=== PATIENT | male | born 1960 | race Caucasian/White ===

== ENCOUNTER 2016-09-17 06:50 | Emergency (ER) | payer BC ==
[~2016-09-17] VITALS: Ht 170.2 cm; Wt 97.5 kg
[2016-09-17 07:16] VITALS: BP 134/90
[2016-09-17] MEDS ORDERED: LEVOPOW21 (07:22)
[2016-09-17] MEDS ORDERED: ATEN25TA PO (07:23)
[2016-09-17] MEDS ORDERED: LIPI10TA PO (07:23)
[2016-09-17] MEDS ORDERED: ALLO100T PO (07:24)
[2016-09-17 09:15] LABS: BASO % 0.6 % (0.0-1.0); EOS # 0.2 K/mm3 (0.0-0.50); EOS % 3.1 % (0.0-3.0); LARGE UNSTAINED CELL # 0.2 K/mm3 (0.0-0.4); LARGE UNSTAINED CELL % 3.2 % (0.0-4.0); LYMPH # 1.6 K/mm3 (1.5-4.5); LYMPH % 33.7 % (24.0-44.0); MEAN CORPUSCULAR HGB CONC 34.1 g/dl (32.0-36.5); MEAN CORPUSCULAR VOLUME 90.7 fl (80.0-96.0); MONO # 0.2 K/mm3 (0.0-0.8); NEUTROPHILS # 2.6 K/mm3 (1.8-7.7); NEUTROPHILS % 54.4 % (36.0-66.0); PLATELET COUNT, AUTOMATED 131 k/mm3 (150-450); RED CELL DISTRIBUTION WIDTH 12.3 % (11.5-14.5); WHITE BLOOD COUNT 4.8 K/mm3 (4.0-10.0)
[2016-09-17 09:32] LABS: ALBUMIN 3.8 GM/DL (3.2-5.2); ALBUMIN/GLOBULIN RATIO 1.27 (1.00-1.93); ALKALINE PHOSPHATASE 34 U/L (45-117); ALT/SGPT 32 U/L (12-78); AMYLASE 42 U/L (25-115); ANION GAP 7 MEQ/L (8-16); AST/SGOT 17 U/L (15-37); BILIRUBIN,DIRECT 0.2 MG/DL (0.0-0.2); BILIRUBIN,TOTAL 0.9 MG/DL (0.2-1.0); BLOOD UREA NITROGEN 16 MG/DL (7-18); CALCIUM LEVEL 8.5 MG/DL (8.5-10.1); CARBON DIOXIDE LEVEL 28 MEQ/L (21-32); CHLORIDE LEVEL 106 MEQ/L (98-107); CREATININE FOR GFR 1.17 MG/DL (0.70-1.30); GLOMERULAR FILTRATION RATE > 60.0 (>56); GLUCOSE, FASTING 103 MG/DL (70-105); POTASSIUM SERUM 4.4 MEQ/L (3.5-5.1); SODIUM LEVEL 141 MEQ/L (136-145); TOTAL PROTEIN 6.8 GM/DL (6.4-8.2)
== END 2016-09-17 09:48 | disposition home or self-care (01) ==
LOC: M ED 08:40
DX: R10.12 Left upper quadrant pain (principal); M10.9 Gout, unspecified; E07.9 Disorder of thyroid, unspecified

== ENCOUNTER 2020-02-18 08:22 | Emergency (ER) | payer BC, OTHER ==
[~2020-02-18] VITALS: Ht 170.2 cm; Wt 109.1 kg
[~2020-02-18 08:22] MED LIST: ALLO100T PO; ATEN25TA PO; LEVOPOW21; LIPI10TA PO
[2020-02-18] MEDS ORDERED: MELO7.5T35 (08:34)
[2020-02-18] MEDS ORDERED: DOXY200C (08:34)
[2020-02-18] MEDS ORDERED: IBUP (08:34)
[2020-02-18] MEDS ORDERED: OMEP-218 (08:34)
[2020-02-18] MEDS ORDERED: MONT10TA4 (08:34)
[2020-02-18] MEDS ORDERED: PREG50CA2 (08:34)
[2020-02-18] MEDS ORDERED: LEVO50TA5 (08:34)
[2020-02-18] MEDS ORDERED: MORPHINE 4 MG/ML 1ML VIAL/SYRINGE (J2270) IV ONE (09:00)
[2020-02-18 09:27] LABS: BASO # 0.1 10^3/uL (0.0-0.2); BASO % 0.7 % (0.0-1.0); EOS # 0.2 10^3/uL (0.0-0.5); EOS % 3.4 % (0.0-3.0); HEMATOCRIT 46.5 % (42.0-52.0); HEMOGLOBIN 15.9 g/dl (13.5-17.5); LYMPH # 2.5 10^3/uL (1.5-5.0); LYMPH % 35.7 % (24.0-44.0); MEAN CORPUSCULAR HEMOGLOBIN 31.6 pg (27.0-33.0); MEAN CORPUSCULAR HGB CONC 34.2 g/dl (32.0-36.5); MEAN CORPUSCULAR VOLUME 92.4 fl (80.0-96.0); MONO # 0.6 10^3/uL (0.0-0.8); NEUTROPHILS # 3.6 10^3/uL (1.5-8.5); NEUTROPHILS % 50.8 % (36.0-66.0); PLATELET COUNT, AUTOMATED 130 10^3/uL (150-450); RED BLOOD COUNT 5.03 10^6/uL (4.30-6.10)
[2020-02-18 09:47] LABS: BLOOD UREA NITROGEN 24 MG/DL (7-18); CALCIUM LEVEL 8.5 MG/DL (8.5-10.1); CARBON DIOXIDE LEVEL 24 MEQ/L (21-32); CHLORIDE LEVEL 110 MEQ/L (98-107); CREATININE FOR GFR 1.17 MG/DL (0.70-1.30); GLOMERULAR FILTRATION RATE > 60.0 (>56); GLUCOSE, FASTING 100 MG/DL (70-100); POTASSIUM SERUM 3.8 MEQ/L (3.5-5.1); SODIUM LEVEL 140 MEQ/L (136-145)
[2020-02-18 09:54] LABS: ERYTHROCYTE SEDIMENTATION RATE 7 mm/hr (0-20)
[2020-02-18 10:09] VITALS: BP 173/92
== END 2020-02-18 10:12 | disposition home or self-care (01) ==
LOC: M ED 08:22
DX: M54.5 Low back pain (principal); I10 Essential (primary) hypertension; Z79.899 Other long term (current) drug therapy
CPT/HCPCS: 80048; 85025; 85652; 86140; 96374; 99284; J2270

== ENCOUNTER → 2020-07-05 | Outpatient (CLI) | payer OTHER ==
[~2020-07-05] MED LIST changes: +DOXY200C; +IBUP; +LEVO50TA5; +MELO7.5T35; +MONT5TAB2; +OMEP-218; +PREG50CA2
== END ==
LOC: M LABSMTC 09:01
PROVIDERS: ATTEND Anesthesiology
DX: Z01.812 Encounter for preprocedural laboratory examination (principal); Z20.822 Contact with and (suspected) exposure to COVID-19

== ENCOUNTER 2020-07-10 10:48 | Day surgery (SDC) | payer BC ==
[~2020-07-10] VITALS: Ht 170.2 cm; Wt 107.4 kg
[~2020-07-10 10:48] MED LIST changes: +ATEN50TA2 PO; +ATOR1TAB21 PO; +DOXY200C PO; -LEVO50TA5; +LEVO50TA5 PO; -MELO7.5T35; +MELO7.5T35 PO; +METF-838 PO; +MONT10TA10 PO; -MONT5TAB2; +NS 1,000 ML IV ONE; -OMEP-218; +OMEP-218 PO; +PREG150C PO; +VITA200038 PO; +[UNRECOGNIZED DRUG - CODE] SL; +[UNRECOGNIZED DRUG - CODE] SL
--- NOTE | 2020-07-10 13:38 | ROOR ---
Patient Name: Sanjeev Kirkland Procedure Date: 07/10/2020 1:14 PM Date of : 1960 Age: 60 Room: [facility] Gender: Male Note Status: Finalized Procedure: Colonoscopy Indications: High risk colon cancer surveillance: Personal history of colonic polyps, Last colonoscopy: September 2014 Providers: Monster ALAN MD Referring MD: Abel Riddle DO Requesting Provider: Medicines: Monitored Anesthesia Care Complications: No immediate complications. Procedure: Pre-Anesthesia Assessment: - The heart rate, respiratory rate, oxygen saturations, blood pressure, adequacy of pulmonary ventilation, and response to care were monitored throughout the procedure. The Colonoscope was introduced through the anus and advanced to the terminal ileum, with identification of the appendiceal orifice and IC valve. The colonoscopy was performed without difficulty. The patient tolerated the procedure well. The quality of the bowel preparation was good. Findings: The perianal and digital rectal examinations were normal. Three sessile polyps were found in the sigmoid colon and splenic flexure. The polyps were diminutive in size. These polyps were removed with a cold snare. Resection and retrieval were complete. Multiple medium-mouthed diverticula were found in the sigmoid colon. The exam was otherwise without abnormality on direct and retroflexion views. Impression: - Three diminutive polyps in the sigmoid colon and at the splenic flexure, removed with a cold snare. Resected and retrieved. - Diverticulosis in the sigmoid colon. - The examination was otherwise normal on direct and retroflexion views. Recommendation: - Repeat colonoscopy in 5 years for surveillance. Procedure Code(s): --- Professional --- 69530, Colonoscopy, flexible; with removal of tumor(s), polyp(s), or other lesion(s) by snare technique Diagnosis Code(s): --- Professional --- K57.30, Diverticulosis of large intestine without perforation or abscess without bleeding K63.5, Polyp of colon Z86.010, Personal history of colonic polyps CPT copyright 2019 [employer]. All rights reserved. The codes documented in this report are preliminary and upon piston maker review may be revised to meet current compliance requirements. Monster Alan MD Monster ALAN MD 07/10/2020 1:38:03 PM Electronically signed by Monster ALAN MD Number of Addenda: 0 Note Initiated On: 07/10/2020 1:14 PM Estimated Blood Loss: Estimated blood loss: none.
[2020-07-10] MEDS ORDERED: LIDOCAINE 2% 100MG/5ML SDV (FOR ANES.) As Ordered ONE (13:47)
[2020-07-10] MEDS ORDERED: propofoL 200 MG/20 ML VIAL As Ordered ONE (13:47)
[2020-07-10 14:05] VITALS: BP 161/103
== END 2020-07-10 14:14 | disposition home or self-care (01) ==
LOC: M OPP 10:48
PROVIDERS: ATTEND Internal Medicine Gastroenterology
DX: Z12.11 Encounter for screening for malignant neoplasm of colon (principal); Z86.010 Personal history of colon polyps; Z80.0 Family history of malignant neoplasm of digestive organs; D12.3 Benign neoplasm of transverse colon; D12.5 Benign neoplasm of sigmoid colon; K57.30 Diverticulosis of large intestine without perforation or abscess without bleeding; I10 Essential (primary) hypertension; E78.5 Hyperlipidemia, unspecified; E11.9 Type 2 diabetes mellitus without complications; M10.9 Gout, unspecified; R12 Heartburn; G47.30 Sleep apnea, unspecified; M19.90 Unspecified osteoarthritis, unspecified site; Z79.84 Long term (current) use of oral hypoglycemic drugs; Z79.899 Other long term (current) drug therapy; Z82.49 Family history of ischemic heart disease and other diseases of the circulatory system

== ENCOUNTER 2023-03-17 10:45 | Day surgery (SDC) | payer BC ==
[~2023-03-17] VITALS: Ht 170.2 cm; Wt 110.8 kg
[~2023-03-17 10:45] MED LIST changes: +ASPI-523 PO; +HYDR-3490 PO; +LEXA5TAB13 PO; +MIRA3350 PO; -MONT10TA10 PO; +MONT10TA97 PO; +OMEP-173 PO; -OMEP-218 PO; -PREG150C PO; +PREG150C2 PO; -PREG50CA2; +PREG50CA3; +VALS1TAB66 PO
[2023-03-17] MEDS ORDERED: propofoL 200 MG/20 ML VIAL As Ordered ONE ×2 (11:13→12:41)
[2023-03-17] MEDS ORDERED: LIDOCAINE 2% 100MG/5ML SDV (FOR ANES.) As Ordered ONE (11:13)
[2023-03-17 13:33] VITALS: BP 120/66; TEMP 99.1; O2SAT 97
== END 2023-03-17 13:25 | disposition home or self-care (01) ==
LOC: M OPP 10:45
PROVIDERS: ATTEND Internal Medicine Gastroenterology
DX: Z80.0 Family history of malignant neoplasm of digestive organs (principal); D12.2 Benign neoplasm of ascending colon; K57.30 Diverticulosis of large intestine without perforation or abscess without bleeding; K64.8 Other hemorrhoids; K59.00 Constipation, unspecified; G47.30 Sleep apnea, unspecified; Z99.89 Dependence on other enabling machines and devices; Z79.1 Long term (current) use of non-steroidal anti-inflammatories (NSAID); Z79.2 Long term (current) use of antibiotics; Z79.51 Long term (current) use of inhaled steroids; Z79.60 Long term (current) use of unspecified immunomodulators and immunosuppressants; Z79.84 Long term (current) use of oral hypoglycemic drugs; Z79.82 Long term (current) use of aspirin; Z79.83 Long term (current) use of bisphosphonates; Z79.890 Hormone replacement therapy; Z79.891 Long term (current) use of opiate analgesic; Z79.899 Other long term (current) drug therapy